=== PATIENT | male | born 1980 | race Caucasian/White ===

== ENCOUNTER 2017-07-08 15:35 | Emergency (ER) | payer BC ==
[~2017-07-08] VITALS: Wt 76.0 kg
[2017-07-08] MEDS ORDERED: DIPHTH/TET/ACEL PERTUSS (ADULT) 0.5 ML VIAL IM* ONE (16:00)
--- NOTE | 2017-07-08 16:49 | RADRPT ---
PROCEDURE: XR Foot 3 Views. CLINICAL INDICATION: Right foot pain and trauma. Possible foreign body. TECHNIQUE: AP, oblique and lateral views of the right foot were obtained. The images were reviewe d on a PACS workstation. COMPARISON: None. FINDINGS: The osseous structures are intact. No destructive bony lesions are identified. Interosseous spaces are normal. Soft tissues surrounding the foot appear unremarkable. IMPRESSION: No visualized traumatic injury. No visualized radiopaque foreign body. Please note that certain materials such as wood are radioluc ent on x-ray. If there is clinical suspicion for foreign body, further characterization with CT rosario uld should be considered. If there is high clinical suspicion for bony traumatic injury, further evaluation with CT should be considered. RPTAT: AA .Benito Morton MD, Date Time Electronically viewed and signed by .Benito Morton MD, on 07/08/2017 16:49 .P/
[2017-07-08] MEDS ORDERED: NAPR-688 PO (17:04)
[2017-07-08] MEDS ORDERED: CEPH-443 PO (17:04)
--- NOTE | 2017-07-08 17:09 | ERD ---
ER Documentation Chief Complaint Date/Time DATE: 07/08/17 TIME: 17:05 Chief Complaint STEPPED ON NAIL YESTERDAY NEED DT SHOT. NO FEVERS HPI This 36-year-old male presents with right foot pain after he stepped on a nail. He had immediate pain and still continues to have pain when he applies weight to the foot. His tetanus is not up-to-date. ROS All systems reviewed and are negative except as per history of present illness. Medications Home Meds Active Scripts Cephalexin* (Keflex*) 500 Mg Capsule, 500 MG PO TID for 5 Days, CAP Prov:KANDY MARSH DO 07/08/17 Naproxen* (Naproxen*) 500 Mg Tablet, 500 MG PO BID Y for PAIN, #10 TAB Prov:KANDY MARSH DO 07/08/17 PMhx/Soc Hx Alcohol Use: No Hx Substance Use: No Hx Tobacco Use: No Physical Exam Vitals Vital Signs Date Time Temp Pulse Resp B/P Pulse Ox O2 Delivery O2 Flow Rate FiO2 07/08/17 15:57 98.9 82 20 139/91 99 Physical Exam Const: [] No distress Head: Atraumatic Eyes: Normal Conjunctiva Skin: No petechiae or rashes Ext: No cyanosis, or edema, And oriented times small puncture wound to the medial ball of foot with no active bleeding. Surrounding tenderness. Results 24 hrs Current Medications Medications (Trade) Dose Ordered Sig/Chintan Route PRN Reason Start Time Stop Time Status Last Admin Dose Admin Diphtheria/ Tetanus/Acell Pertussis (Adacel) 0.5 ml ONCE ONCE IM* 07/08/17 16:00 07/08/17 16:01 DC 07/08/17 16:22 Procedures/MDM Nail puncture wound bilateral foot with no evidence of foreign body or fracture. Patient was given a tetanus shot emergency room he declined any pain medication. I am going to discharge him with 5 days of Keflex as well as naproxen in case he does want to take pain medication. Primary care follow-up in 2-3 days and return precautions. X-ray foot interpretation by myself: I see no foreign body, no fracture dislocation. Normal foot x-ray. Departure Diagnosis: Primary Impression: Puncture wound Condition: Stable Patient Instructions: Puncture Wound, Foot Referrals: WOO JUNIOR MD (PCP) Additional Instructions: Call your primary care doctor TOMORROW for an appointment during the next 2-3 days.See the doctor sooner or return here if your condition worsens before your appointment time. KANDY MARSH DO Jul 08, 2017 17:08
== END 2017-07-08 18:30 | disposition home or self-care (01) ==
LOC: E/R 15:35
DX: S91.331A Puncture wound without foreign body, right foot, initial encounter (principal); W45.0XXA Nail entering through skin, initial encounter; Y92.9 Unspecified place or not applicable; Z23 Encounter for immunization
CPT/HCPCS: 73630; 90471; 90715

== ENCOUNTER → 2019-07-15 | Outpatient (CLI) | payer BC ==
[~2019-07-15] MED LIST: CEPH-443 PO; NAPR-688 PO
== END | disposition home or self-care (01) ==
LOC: LAB 10:51
PROVIDERS: ATTEND Internal Medicine
DX: E78.5 Hyperlipidemia, unspecified (principal); N40.0 Benign prostatic hyperplasia without lower urinary tract symptoms; R73.03 Prediabetes
CPT/HCPCS: 80053; 80061; 81003; 83036; 84153; 84154; 85025

== ENCOUNTER → 2019-07-15 | Outpatient (CLI) | payer BC | END | disposition home or self-care (01) | LOC: RAD 10:58 | PROVIDERS: ATTEND Internal Medicine | DX: J42 Unspecified chronic bronchitis (principal); M70.31 Other bursitis of elbow, right elbow; J98.11 Atelectasis; M79.89 Other specified soft tissue disorders | CPT/HCPCS: 71046 ==